=== PATIENT | male | born 1970 | race Caucasian/White ===

== ENCOUNTER 2024-08-03 08:00 | Day surgery (SDC) | payer MEDICARE, MEDICAID, SELFPAY ==
[2024-08-03] VITALS (10 sets, daily range): BP systolic 123–158; BP diastolic 75–101; PULSE 76–801; RESP 11–16; TEMP 36.6–36.7; O2SAT 94–98; BMI 37.3
[2024-08-03] MEDS: DiphenhydrAMINE INJ 50 MG/ML VIAL 25 MG IV (09:14)
[2024-08-03] MEDS: fentaNYL CIT INJ 50 mCg/ML AMP 2ML (ASD USE ONLY) IV (09:18)
[2024-08-03] MEDS: MIDAZOLAM INJ 1 MG/ML VIAL 2 ML (ASD USE ONLY) 2 MG IV (09:18)
== END 2024-08-03 10:18 | disposition home or self-care (01) ==
PROVIDERS: PCP Nurse Practitioner Family; Referring Provider Surgery; Visit Provider Surgery
PROC: 0DBE8ZX Excision of Large Intestine, Via Natural or Artificial Opening Endoscopic, Diagnostic (ICD-10-PCS; CPT 45380; principal; 2024-08-03 11:30)
DX: D12.3 Benign neoplasm of transverse colon (principal); K64.8 Other hemorrhoids; K57.31 Diverticulosis of large intestine without perforation or abscess with bleeding
CPT/HCPCS: 45385; J1200; J2250; J3010

== ENCOUNTER → 2024-08-18 | Outpatient (CLI) | payer MEDICARE, MEDICAID, SELFPAY ==
[2024-08-18 08:58] LABS: Glucose Estimated Average 117 mg/dL (80-131); Hemoglobin A1C 5.7 % Hgb (4.8-6.0)
[2024-08-18 09:04] LABS: Basophils % (Auto) 1 % (0-2.5); Eosinophils # (Auto) 0.1 Thou/mm3 (0.0-0.5); Eosinophils % (Auto) 2 % (0-10); Hematocrit 39.5 % (41.0-53.0); Immature Granulocytes % (Auto) 1 % (0-0); Immature Granulocytes Auto 0.05 Thou/mm3 (0.00-0.00); Lymphocytes # (Auto) 2.1 Thou/mm3 (1.0-4.8); Lymphocytes % (Auto) 34 % (10-50); Mean Corpuscular HGB Conc 32.9 g/dl (31.0-37.0); Mean Corpuscular Hemoglobin 28.4 pg (25.0-35.0); Mean Corpuscular Volume 86 fL (80-100); Monocytes # (Auto) 0.6 Thou/mm3 (0.0-0.8); Monocytes % (Auto) 10 % (0-12); Neutrophils # (Auto) 3.2 Thou/mm3 (1.8-7.7); Neutrophils % (Auto) 53 % (37-80); Nucleated Red Blood Cell % 0 /100 WBC (0); Platelet Count 311 Thou/mm3 (140-440); RDW Standard Deviation 44.7 fL (35.1-43.9); Red Blood Count 4.58 Miln/mm3 (4.50-5.90)
[2024-08-18 09:30] LABS: Alanine Aminotransferase 14 U/L (10-49); Albumin, Serum 4.4 gm/dL (3.5-5.0); Albumin/Globulin Ratio 1.8 (1.2-2.2); Alkaline Phosphatase 68 U/L (46-116); Anion Gap 11 (7-16); Aspartate Amino Transferase 14 U/L (0-34); BUN/Creatinine Ratio 12 Ratio (12-20); Bilirubin,Total 0.2 mg/dL (0.3-1.2); Blood Urea Nitrogen 14 mg/dL (9-23); Calcium 9.6 mg/dL (8.3-10.6); Calcium (Corrected) 9.6 mg/dL (8.5-10.1); Carbon Dioxide 26.2 mMol/L (20.0-31.0); Chloride 99 mMol/L (98-107); Cholesterol 145 mg/dL (132-200); Creatinine (Component) 1.2 mg/dL (0.6-1.3); Globulin 2.5 gm/dL (2.3-3.5); Glucose 116 mg/dL (74-106); HDL Cholesterol 49 mg/dL (40-60); LDL Cholesterol,Calculated 75 mg/dL (0-130); Osmolality,Calculated 273 (275-295); Potassium 4.3 mMol/L (3.4-5.1); Sodium 136 mMol/L (136-145); Thyroid Stimulating Hormone 8.25 uIU/mL (0.55-4.78); Total Protein 6.9 gm/dL (5.7-8.2); Triglycerides 104 mg/dL (30-150); eGFR > 60 See Note
[2024-08-23 07:01] LABS: Valporic Acid (Depak)* 101.6 mg/L (50.0-100.0)
== END | disposition home or self-care (01) ==
LOC: COPL 07:14
PROVIDERS: PCP Nurse Practitioner Family; Referring Provider Nurse Practitioner Family; Visit Provider Nurse Practitioner Family
DX: E11.65 Type 2 diabetes mellitus with hyperglycemia (principal); E78.2 Mixed hyperlipidemia; Z79.899 Other long term (current) drug therapy
CPT/HCPCS: 36415; 80053; 80061; 80164; 83036; 84443; 85025

== ENCOUNTER → 2024-10-16 | Outpatient (CLI) | payer MEDICARE, MEDICAID, SELFPAY ==
--- NOTE | 2024-10-16 11:19 | XR_ITS ---
Examination: PA lateral chest 2 views TECHNIQUE: Upright PA lateral chest 2 views Exam date and time: October 16, 2024 1206 hours INDICATIONS: Coughing beginning one week ago. FINDINGS: Accentuation basilar bronchovascular markings. Normal heart size No lobar pneumonia Moderate osteopenia IMPRESSION: Basilar bronchitis pattern
== END | disposition home or self-care (01) ==
LOC: CDIM 11:10
PROVIDERS: PCP Nurse Practitioner Family; Referring Provider Nurse Practitioner Family; Visit Provider Nurse Practitioner Family
DX: R05.9 Cough, unspecified (principal)
CPT/HCPCS: 71046

== ENCOUNTER 2025-03-10 07:31 | Emergency (ER) | payer MEDICARE, MEDICAID, SELFPAY ==
[2025-03-10 08:23] VITALS: BP 146/88; PULSE 77; RESP 18; TEMP 36.6; O2SAT 95; BMI 42.8
--- NOTE | 2025-03-10 08:48 | XR_ITS ---
Examination: Tibia-Fibula, right , 2 views Technique: Tibia-fibula AP lateral 2 views Date and time of exam: March 10, 2025, 0859 hrs. Indications: Patient fell last night with injury to the lower leg, lower leg pain. Findings: No acute fracture. No dislocation Impression: No acute fracture.
--- NOTE | 2025-03-10 08:48 | XR_ITS ---
Examination: Knee, right , 4 views Technique: Knee AP, lateral, oblique and lateral, 4 views Date and time of exam: 05/10/2024, 0857 hrs. Indications: Patient fell last night with injury to the knee, knee pain Findings: No fracture or dislocation. Impression: No fracture or dislocation. No foreign body.
[2025-03-10] MEDS: KETOROLAC INJ 60 MG/2 ML VIAL 15 MG IM (09:24)
[2025-03-10 11:12] VITALS: BP 127/88; PULSE 75; RESP 18; TEMP 37.1; O2SAT 96
--- NOTE | 2025-03-10 11:23 | PD.EDEXREM ---
ED Extremity Problem RME/HPI General Chief complaint: Ankle/Foot Injury Stated complaint: R FOOT PAIN S/P FALL Time Seen by Provider: 03/10/25 08:44 Arrival date/time: 03/10/25 07:31 Limitations: no limitations RME / HPI RME / HPI Narrative: 55-year-old male who was brought in today by his caregiver with right leg pain. He has a history of schizoaffective sorter and lives in assisted care facility. He had a ground-level, mechanical, fall today and injured his right lower leg along the lateral aspect at the mid fibula. He has no open wounds or gross deformities. He is able to bear weight without assistance. He had no head strike or spine injury. He has no open wounds. There are no other acute complaints or concerns. Related Data Home Medications ?Medication ?Instructions ?Recorded ?Confirmed divalproex 500 mg tablet,extended 500 mg PO HS #0 tabs 11/16/13 08/03/24 release 24 hr (Depakote ER) benztropine 0.5 mg tablet 0.5 mg PO HS 12/16/23 08/03/24 levothyroxine 25 mcg capsule 25 mcg PO QDAY 12/16/23 08/03/24 metformin 750 mg tablet,extended 500 mg PO BID 12/16/23 08/03/24 release 24 hr omeprazole 20 mg capsule,delayed 20 mg PO QDAY 12/16/23 08/03/24 release risperidone 4 mg tablet 3 mg PO HS 12/16/23 08/03/24 fluticasone propionate 115 1 puff inhalation QDAY 08/03/24 08/03/24 mcg-salmeterol 21 mcg/actuation HFA inhaler (Advair HFA) trazodone 150 mg tablet 150 mg PO HS 08/03/24 08/03/24 Allergies Allergy/AdvReac Type Severity Reaction Status Date / Time No Known Allergies Allergy Verified 03/10/25 07:32 Review of Systems Review of Systems Systems Reviewed: All systems reviewed, normal except as documented ED Exam General Limitations: Present no limitations General appearance: Present alert and in no apparent distress Head Head exam: Present atraumatic Eye Eye exam: Present normal appearance, PERRL and EOMI ENT ENT exam: Present normal exam, normal oropharynx and mucous membranes moist Neck Neck exam: Present normal inspection, full ROM and trachea midline Chest Chest inspection: Present normal inspection and symmetric chest wall rise Respiratory Respiratory exam: Present normal lung sounds bilaterally Cardiovascular Cardiovascular exam: Present regular rate, normal rhythm and normal heart sounds Abdominal Exam Abdominal exam: Present soft and normal bowel sounds Extremities Exam Extremities exam: Present normal inspection and full ROM Back Exam Back exam: Present normal inspection and full ROM Neurological Exam Neurological exam: Present alert and oriented X3 Psychiatric Psychiatric exam: Present normal affect and normal mood Skin Skin exam: Present warm, dry, intact and normal color Course Quality Measures none Orders Category Date Time Status XR knee comp RT 4V Stat Exams 03/10/25 08:48 Completed XR tibia fibula RT 2V Stat Exams 03/10/25 08:48 Completed Ketorolac Inj [Toradol Inj] Med 03/10/25 08:48 Discontinued 15 mg IM X1 ONE Vital Signs Vital signs: Vital Signs Temperature 97.9 F 03/10/25 08:23 Pulse Rate 77 03/10/25 08:23 Respiratory Rate 18 03/10/25 08:23 Blood Pressure 146/88 H 03/10/25 08:23 Pulse Oximetry (%) 95 03/10/25 08:23 Oxygen Delivery Method Room Air 03/10/25 08:23 Extremity Problem MDM Narrative MDM Narrative:: 55-year-old male who was brought in today by his caregiver with right leg pain. He has a history of schizoaffective sorter and lives in assisted care facility. He had a ground-level, mechanical, fall today and injured his right lower leg along the lateral aspect at the mid fibula. He has no open wounds or gross deformities. He is able to bear weight without assistance. He had no head strike or spine injury. He has no open wounds. There are no other acute complaints or concerns. On exam, patient is nontoxic. No visible signs stress. He has no point tenderness on exam. He is able to stand up and fully bear weight without assistance. Plain films were obtained of his tibia, fibula, and knee which are all unremarkable for any radiographic evidence of osseous injury. I do believe the patient be discharged in the ER. He is advised to use Tylenol for comfort. Apply frequent cold compress. Follow-up with his primary doctor as needed. Return if any worsening or emergent changes. Patient data External records reviewed:: [facility] records Clinical information provided by:: patient and medical diagnostic radiographer Social determinants that could affect healthcare access:: mental health Patient has the following chronic illnesses:: Schizoaffective disorder How is presenting disease/condition affected by chronic disease/condition?: uneffected by Evaluation data The following diagnostics were reviewed and interpreted by me:: radiology exam(s) (No evidence of osseous injury) Lab and/or radiology exams considered but not ordered:: n/a Interpretation Summary: No fracture Medications / Prescriptions Medications or Prescriptions considered but not ordered:: n/a Medication administrations:: Medication Administration History Discontinued Medications Ketorolac Tromethamine (Ketorolac Inj 60 Mg/2 Ml Vial) 15 mg IM X1 ONE Stop: 03/10/25 08:49 Last Admin: 03/10/25 09:24 Dose: 15 mg Documented By: DO see above Consultations Consultation(s) initiated? (list below): No Diagnosis Extremity Problem Differential Diagnosis: other (Fracture, sprain) Most likely diagnosis given after review of the tests above:: n/a Admission Indicated Admission indicated?: not indicated Admission Request Was there a request for admission?: No Disposition Plan Disposition Plan: Discharge Discharge Attestation Discharge Attestation: The patient and all family members were given an opportunity to ask questions and understood the discharge instructions. Discharge instructions specifically effects, indications for sooner follow up or return to the emergency department, and the expected course of current diagnosis. Patient condition: Stable Discharge Plan Plan Patient Disposition: HOME (Self Care) Patient condition on transfer: Stable Prescriptions/Referrals Prescriptions/Med Rec: No Action benztropine 0.5 mg tablet 0.5 mg PO HS omeprazole 20 mg capsule,delayed release(DR/EC) 20 mg PO QDAY levothyroxine 25 mcg capsule 25 mcg PO QDAY metformin 750 mg tablet extended release 24 hr 500 mg PO BID risperidone 4 mg tablet 3 mg PO HS divalproex [Depakote ER] 500 MG tablet extended release 24 hr 500 mg PO HS Qty: 0 trazodone 150 mg tablet 150 mg PO HS fluticasone propion-salmeterol [Advair HFA] 115-21 mcg/actuation HFA aerosol inhaler 1 puff INHALATION QDAY Referrals: Shelby Garcia, [employer] [Primary Care Provider] - In 1 week Problem List Clinical Impression: Leg sprain Patient/Caregiver Discharge Instructions Education Materials: ED Muscle Strain, Extremity Additional Instructions: - Use Tylenol and ibuprofen for comfort. - Apply frequent cold compress - Follow-up with your primary doctor as needed. Consider physical therapy if symptoms or prolonged. - Return to the emergency room at anytime for any worsening or emergent changes. Print Language: Irish Stand Alone Forms: Edie Award Info., Patient Portal Info Letter
== END 2025-03-10 11:49 | disposition home or self-care (01) ==
PROVIDERS: Emergency Provider Emergency Medicine; PCP Nurse Practitioner Family
DX: S83.91XA Sprain of unspecified site of right knee, initial encounter (principal); W18.30XA Fall on same level, unspecified, initial encounter
CPT/HCPCS: 73564; 73590; 96372; 99283; J1885

== ENCOUNTER → 2025-07-18 | Outpatient (CLI) | payer MEDICARE, MEDICAID, SELFPAY ==
[2025-07-18 08:02] LABS: Basophils # (Auto) 0.0 Thou/mm3 (0.0-0.2); Basophils % (Auto) 1 % (0-2.5); Eosinophils # (Auto) 0.1 Thou/mm3 (0.0-0.5); Eosinophils % (Auto) 2 % (0-10); Hematocrit 39.3 % (41.0-53.0); Hemoglobin 12.9 g/dL (13.5-16.0); Immature Granulocytes Auto 0.02 Thou/mm3 (0.00-0.00); Lymphocytes # (Auto) 2.6 Thou/mm3 (1.0-4.8); Lymphocytes % (Auto) 40 % (10-50); Mean Corpuscular HGB Conc 32.8 g/dl (31.0-37.0); Mean Corpuscular Hemoglobin 27.0 pg (25.0-35.0); Mean Corpuscular Volume 82 fL (80-100); Monocytes # (Auto) 0.6 Thou/mm3 (0.0-0.8); Monocytes % (Auto) 9 % (0-12); Neutrophils # (Auto) 3.2 Thou/mm3 (1.8-7.7); Neutrophils % (Auto) 49 % (37-80); Nucleated Red Blood Cell # 0.00 Thou/mm3 (0.00-0.00); Nucleated Red Blood Cell % 0 /100 WBC (0); Platelet Count 310 Thou/mm3 (140-440); RDW Standard Deviation 44.0 fL (35.1-43.9); Red Blood Count 4.78 Miln/mm3 (4.50-5.90); White Blood Count 6.6 Thou/mm3 (3.8-10.6)
[2025-07-18 08:13] LABS: Alanine Aminotransferase 12 U/L (10-49); Albumin, Serum 4.7 gm/dL (3.5-5.0); Albumin/Globulin Ratio 1.8 (1.2-2.2); Alkaline Phosphatase 68 U/L (46-116); Anion Gap 10 (7-16); Aspartate Amino Transferase 15 U/L (0-34); BUN/Creatinine Ratio 8 Ratio (12-20); Bilirubin,Total 0.4 mg/dL (0.3-1.2); Blood Urea Nitrogen 8 mg/dL (9-23); Calcium 9.1 mg/dL (8.3-10.6); Calcium (Corrected) 9.1 mg/dL (8.5-10.1); Carbon Dioxide 27.0 mMol/L (20.0-31.0); Cardiac Risk Estimate 3.6 RATIO (4.0-6.7); Chloride 100 mMol/L (98-107); Cholesterol 144 mg/dL (132-200); Creatinine (Component) 1.0 mg/dL (0.6-1.3); Free T4 (Free Thyroxine) 1.15 ng/dL (0.89-1.76); Globulin 2.6 gm/dL (2.3-3.5); Glucose 118 mg/dL (74-106); HDL Cholesterol 40 mg/dL (40-60); LDL Cholesterol,Calculated 77 mg/dL (0-130); Osmolality,Calculated 273 (275-295); Potassium 4.0 mMol/L (3.4-5.1); Sodium 137 mMol/L (136-145); Thyroid Stimulating Hormone 4.14 uIU/mL (0.55-4.78); Total Protein 7.3 gm/dL (5.7-8.2); Triglycerides 135 mg/dL (30-150); eGFR > 60 See Note
[2025-07-18 08:17] LABS: T4 (Thyroxine) 7.1 mcg/dL (4.5-10.9)
[2025-07-18 08:22] LABS: Ammonia < 10 uMol/L (11-32)
[2025-07-23 07:33] LABS: Prolactin* 22.8 ng/mL (2.0-18.0); T3,Total* 91 ng/dL (76-181); Valporic Acid (Depak)* 64.1 mg/L (50.0-100.0)
== END | disposition home or self-care (01) ==
LOC: COPL 06:59
PROVIDERS: Referring Provider General Practice; Visit Provider General Practice
DX: F25.0 Schizoaffective disorder, bipolar type (principal); F81.9 Developmental disorder of scholastic skills, unspecified
CPT/HCPCS: 36415; 80053; 80061; 80164; 82140; 84146; 84436; 84439; 84443; 84480; 85025